=== PATIENT | female | born 1985 | race Caucasian/White ===

== ENCOUNTER 2019-01-02 16:05 | Outpatient (CLI) | payer MEDICAID ==
--- NOTE | 2019-01-02 17:00 | Non Stress Test Report ---
Non Stress Test Datetime Report Generated by CPN: 01/02/2019 16:59 DEMOGRAPHIC EGA NST: 35.5 INDICATION Indication for Study: Other Indication for Study (NST) Other: elevated afp, repeat from office VITAL SIGNS Temperature - NST: 98.3 Pulse - NST: 78 RESP - NST: 17 NBPSYS NST: 111 NBPDIA NST: 57 MONITORING Monitor Explained: Monitor Explained; Test Explained; Patient Verbalized Understanding Time on Monitor: 01/02/2019 16:17 Time off Monitor: 01/02/2019 16:38 NST Duration: 21 NST INTERVENTIONS NST Interventions: PO Hydration; For Biophysical Profile Physician Notified NST: Dr Ruff BABY A: [id number] BABY A Movement : Present Contraction Frequency : 0 FHR Baseline : 150 FHR Baseline : 150 Accelerations : 15X15 Accelerations : 15X15 Decelerations : None Variability : Moderate 6-25bpm Variability : Moderate 6-25bpm NST Review: Meets Criteria for Reactive NST NST Review and Verified By : MARINE RodriguesT Results: Reactive NST Results: Reactive NST REPORT Report Trigger: Send Report
== END 2019-01-02 16:48 | disposition home or self-care (01) ==
LOC: LC 16:05
PROVIDERS: ATTEND Student in an Organized Health Care Education/Training Program
PROC: 4A1HXCZ Monitoring of Products of Conception, Cardiac Rate, External Approach (ICD-10-PCS; principal; 2019-01-02)
DX: O26.893 Other specified pregnancy related conditions, third trimester (principal); O99.333 Smoking (tobacco) complicating pregnancy, third trimester; F17.210 Nicotine dependence, cigarettes, uncomplicated; Z3A.35 35 weeks gestation of pregnancy
CPT/HCPCS: 59025